=== PATIENT | female | born 1980 | race Caucasian/White ===

== ENCOUNTER 2017-10-18 18:34 | Emergency (ER) | payer OTHER | END 2017-10-18 21:01 | disposition home or self-care (01) | LOC: FTE 18:34 | DX: L03.111 Cellulitis of right axilla (principal); L03.112 Cellulitis of left axilla | CPT/HCPCS: 99283; Z7502 ==

== ENCOUNTER 2018-02-10 13:56 | Outpatient (CLI) | payer OTHER ==
[2018-02-10 15:13] LABS: ADD UMIC YES; UR ASCORBIC ACID 20 mg/dL (NEGATIVE); UR BILIRUBIN (Dip) NEGATIVE (NEGATIVE); UR BLOOD (Dip) NEGATIVE (NEGATIVE); UR CLARITY CLEAR (CLEAR); UR COLOR YELLOW (YELLOW); UR GLUCOSE (Dip) NEGATIVE (NEGATIVE); UR KETONES (Dip) NEGATIVE (NEGATIVE); UR LEUKOCYTE ESTERASE (Dip) TRACE Leu/ul (NEGATIVE); UR NITRITE (Dip) NEGATIVE (NEGATIVE); UR RBC 0 /HPF (0-5); UR SPECIFIC GRAVITY (Dip) 1.023 (1.003-1.030); UR SQUAMOUS EPITHELIAL CELL FEW /HPF (FEW); UR TOTAL PROTEIN (Dip) 1+ mg/dl (NEGATIVE); UR UROBILINOGEN (Dip) NEGATIVE (NEGATIVE); UR WBC 1 /HPF (0-5)
== END 2018-02-10 16:57 | disposition home or self-care (01) ==
LOC: OBT 13:56 → L-D 13:57 → OBT 16:57
DX: O26.893 Other specified pregnancy related conditions, third trimester (principal); R10.30 Lower abdominal pain, unspecified; O09.523 Supervision of elderly multigravida, third trimester; Z3A.32 32 weeks gestation of pregnancy
CPT/HCPCS: 76817; 76818; 81001

== ENCOUNTER 2018-04-01 18:03 | Inpatient (IN) | payer OTHER ==
[2018-04-01] MEDS ORDERED: MISOPROSTOL 200 MCG TAB PR (20:00)
[2018-04-01] MEDS ORDERED: OXYTOCIN 30 UNITS/LR 500 ML IV (20:00)
[2018-04-01] MEDS ORDERED: METHYLERGONOVINE 0.2 MG INJ IM (20:00)
[2018-04-01] MEDS ORDERED: CARBOPROST 250 MCG INJ IM (20:00)
[2018-04-01 20:15] LABS: ADD MAN DIFF? NO
[2018-04-01 20:18] LABS: BASOPHILS % 0.4 % (0.0-2.0); HEMOGLOBIN 11.7 g/dl (12.0-16.0); LYMPHOCYTES # 1.1 10^3/ul (0.8-2.9); LYMPHOCYTES % 18.5 % (15.0-51.0); MEAN CORPUSCULAR HEMOGLOBIN 30.2 pg (29.0-33.0); MEAN CORPUSCULAR HGB CONC 34.4 g/dl (32.0-37.0); MEAN CORPUSCULAR VOLUME 87.6 fl (82.0-101.0); MEAN PLATELET VOLUME 11.4 fl (7.4-10.4); MONOCYTE # 0.5 10^3/ul (0.3-0.9); MONOCYTES % 8.1 % (0.0-11.0); NEUTROPHIL # 4.1 10^3/ul (1.6-7.5); NEUTROPHILS % 72.6 % (39.0-77.0); PLATELET COUNT 206 10^3/UL (140-415); RED BLOOD COUNT 3.88 10^6/ul (4.20-5.40); RED CELL DISTRIBUTION WIDTH 12.4 % (11.5-14.5)
[2018-04-01 20:18] LABS: WHITE BLOOD COUNT 5.7 10^3/ul (4.8-10.8)
[2018-04-01 20:34] LABS: INR 0.89; PROTIME 12.2 Sec (11.9-14.9)
[2018-04-01 20:40] LABS: PARTIAL THROMBOPLASTIN TIME 26.9 Sec (23.0-35.0)
[2018-04-01 21:25] LABS: HEPATITIS B SURFACE ANTIGEN NEGATIVE (NEGATIVE)
[2018-04-01] MEDS ORDERED: morphine SULFATE/PF (10 MG/10 ML) INJ (22:39)
[2018-04-01] MEDS ORDERED: METOCLOPRAMIDE 10 MG INJ (22:40)
[2018-04-01] MEDS ORDERED: ONDANSETRON 4 MG INJ (22:40)
[2018-04-01] MEDS ORDERED: KETOROLAC 30 MG INJ (22:40)
[2018-04-01] MEDS: CITRIC ACID/NA CITRATE 30 ML CUP PO (22:47)
[2018-04-01] MEDS: LACTATED RINGER'S 1,000 ML IV ×2 (22:47→22:50)
[2018-04-01] MEDS ORDERED: EPHEDrine SULFATE 50 MG/5 ML SYG (23:30)
[2018-04-02] MEDS ORDERED: OXYTOCIN 30 UNITS/LR 500 ML IV ×2 (00:20→03:30)
[2018-04-02] MEDS ORDERED: ONDANSETRON 4 MG INJ IV ×2 (01:00)
[2018-04-02] MEDS ORDERED: NALOXONE (0.4 MG/ML) INJ IV (01:00)
[2018-04-02] MEDS ORDERED: DIPHENHYDRAMINE 50 MG INJ IV ×2 (01:00)
[2018-04-02] MEDS ORDERED: morphine (1 MG/ML) 10ML SYRINGE IV ×3 (01:00)
[2018-04-02] MEDS ORDERED: morphine 2 MG INJ IV ×3 (01:00)
[2018-04-02] MEDS ORDERED: KETOROLAC 30 MG INJ IV (01:00)
[2018-04-02] MEDS: OXYTOCIN 30 UNITS/LR 500 ML IV ×4 (02:31→17:22)
[2018-04-02] MEDS: CEFAZOLIN 2 GM/50 ML (PMX) 50 ML IVPB (03:16)
[2018-04-02] MEDS ORDERED: DEXTROSE 5%-LR 1,000 ML IV (03:19)
[2018-04-02] MEDS ORDERED: METHYLERGONOVINE 0.2 MG TAB PO (03:30)
[2018-04-02] MEDS ORDERED: CARBOPROST 250 MCG INJ IM (03:30)
[2018-04-02] MEDS ORDERED: MAGNESIUM HYDROXIDE 30ML CUP PO (03:30)
[2018-04-02] MEDS ORDERED: METHYLERGONOVINE 0.2 MG INJ IM (03:30)
[2018-04-02] MEDS ORDERED: MISOPROSTOL 200 MCG TAB PR (03:30)
[2018-04-02] MEDS: SENNA/DOCUSATE NA (8.6MG/50MG) TAB PO ×2 (08:44→20:55)
[2018-04-02] MEDS: KETOROLAC 30 MG INJ IV ×2 (12:20→20:55)
[2018-04-02 16:20] LABS: RAPID PLASMA REAGIN NONREACTIVE (NR)
[2018-04-02] MEDS: LACTATED RINGER'S 1,000 ML IV (17:17)
[2018-04-03] MEDS: IBUPROFEN 800 MG TAB PO ×3 (05:57→22:33)
[2018-04-03 06:38] LABS: ADD MAN DIFF? NO
[2018-04-03 06:44] LABS: BASOPHILS % 0.3 % (0.0-2.0); EOSINOPHILS % 0.3 % (0.0-7.0); HEMATOCRIT 28.4 % (37.0-47.0); HEMOGLOBIN 9.4 g/dl (12.0-16.0); LYMPHOCYTES # 1.2 10^3/ul (0.8-2.9); LYMPHOCYTES % 17.8 % (15.0-51.0); MEAN CORPUSCULAR HEMOGLOBIN 30.1 pg (29.0-33.0); MEAN CORPUSCULAR HGB CONC 33.1 g/dl (32.0-37.0); MEAN PLATELET VOLUME 10.9 fl (7.4-10.4); MONOCYTE # 0.4 10^3/ul (0.3-0.9); MONOCYTES % 6.2 % (0.0-11.0); NEUTROPHIL # 4.9 10^3/ul (1.6-7.5); NEUTROPHILS % 75.1 % (39.0-77.0); PLATELET COUNT 153 10^3/UL (140-415); RED BLOOD COUNT 3.12 10^6/ul (4.20-5.40); RED CELL DISTRIBUTION WIDTH 12.6 % (11.5-14.5)
[2018-04-03 06:44] LABS: WHITE BLOOD COUNT 6.5 10^3/ul (4.8-10.8)
[2018-04-03] MEDS: SENNA/DOCUSATE NA (8.6MG/50MG) TAB PO ×2 (08:34→20:58)
[2018-04-03] MEDS: OXYTOCIN 30 UNITS/LR 500 ML IV (09:19)
[2018-04-03] MEDS ORDERED: HYDROCODONE/APAP (5/325) TAB PO (11:00)
[2018-04-03] MEDS ORDERED: DIPHTH/TET/ACEL PERTUSS (ADULT) 0.5 ML VIAL IM* (11:00)
[2018-04-03 12:46] LABS: RHOGAM PROFILE 1 1
[2018-04-03] MEDS: HYDROCODONE/APAP (5/325) TAB PO ×2 (13:43→22:33)
[2018-04-03] MEDS: LANOLIN HPA 1 PKT TOP (20:58)
[2018-04-04] MEDS: HYDROCODONE/APAP (5/325) TAB PO ×2 (05:43→14:15)
[2018-04-04] MEDS: IBUPROFEN 800 MG TAB PO ×2 (05:43→14:15)
[2018-04-04] MEDS: SENNA/DOCUSATE NA (8.6MG/50MG) TAB PO (11:15)
[2018-04-04] MEDS: DIPHTH/TET/ACEL PERTUSS (ADULT) 0.5 ML VIAL IM* (15:53)
[2018-04-05] MEDS ORDERED: MEASLES,MUMPS,RUBELLA VACCINE INJ SC* (09:00)
== END 2018-04-04 16:30 | disposition home or self-care (01) | DRG 788 ==
LOC: L-D 18:03 → PP1 04-02 03:28 → L-D 22:57
PROVIDERS: Obstetrics & Gynecology
PROC: 10D00Z1 Extraction of Products of Conception, Low, Open Approach (ICD-10-PCS; principal; 2018-04-02)
DX: O34.211 Maternal care for low transverse scar from previous cesarean delivery (principal); Z3A.39 39 weeks gestation of pregnancy; Z37.0 Single live birth; G89.18 Other acute postprocedural pain
CPT/HCPCS: 85025; 85610; 85730; 86592; 86850; 86870; 86885; 86900; 86901; 87340; 94760; 99464

== ENCOUNTER 2018-10-07 18:01 | Emergency (ER) | payer OTHER ==
[2018-10-07] MEDS: LORAZEPAM 1 MG TAB PO (21:48)
[2018-10-07] MEDS: KETOROLAC 30 MG INJ IM (21:48)
== END 2018-10-07 23:06 | disposition home or self-care (01) ==
LOC: FTE 18:01
DX: R51 Headache (principal)
CPT/HCPCS: 70450; 81025; 96372; 99285-25